=== PATIENT | male | born 1985 | race Caucasian/White ===

== ENCOUNTER → 2017-08-20 | Outpatient (CLI) | payer OTHER ==
[~2017-08-20] MED LIST: IOPAMIDOL 76% 75 ML INFUS BTL 75 ML ONE; MULT-1081 PO
--- NOTE | 2017-08-20 15:33 | RADIOLOGY IMAGING REPORT ---
FACILITY: [facility] - [place] PATIENT NAME: Yusef Palacios : 1985 MR: [id number] V: [id number] EXAM DATE: ORDERING PHYSICIAN: ERIKA BRICE TECHNOLOGIST: [place] [facility] [place] Yusef Palacios : 1985 Visit/Account:[id number] Date of Sevice: 08/20/2017 ABDOMEN/PELVIS W/WO CONTRAST HISTORY: Right-sided abdomen pain and painless jaundice TECHNIQUE: Axial images acquired through the abdomen/pelvis both with and without IV contrast.. Macy nal and sagittal reformatting also performed. Dose Lowering Technique One of the following dose optimization techniques was utilized in the performance of this exam: Autom ated exposure control; adjustment of the mA and/or kV according to the patient's size; or use of an i terative reconstruction technique. Specific details can be referenced in the facility's radiology C T exam operational policy. CONTRAST: 75 mL Isovue-370 COMPARISON: None. FINDINGS: Visualized lung bases: Negative. Hepatobiliary: Liver is enlarged measuring 21.3 cm in length. The gallbladder is very distended junior suring approximately 11.1 x 4.8 x 4.4 cm and contains several small layering gallstones. Common bile duct is mildly dilated at 8 mm. There is no intrahepatic biliary ductal dilatation. Spleen: Spleen is enlarged measuring 16.6 cm in AP dimension 9.3 cm in width and 12.5 cm in length. Adrenals: Negative. Pancreas: A discrete pancreatic mass is not appreciated Kidneys ureters and bladder: The left kidney appears prominent measuring 13.9 cm in length right kidn ey appears much smaller measuring 9.7 cm in length. No evidence of hydronephrosis. There is mild lo bular contour to the right kidney which may reflect scarring Genitalia: Negative. GI: Negative. Vessels/spaces/nodes: There is a left paraesophageal soft tissue nodule measuring 1.4 x 1 x 2.7 cm a long the distal third of the esophagus may represent a lymph node or varix. There are multiple gastr ic and splenic varices consistent with portal hypertension. There are several mildly prominent lymph nodes in the right lower quadrant. [employer] lymph nod e measures 1.3 x 0.9 cm. There is indistinctness of the fat planes in the portal caval region and adenopathy cannot be totally ruled out Bones/soft tissues: Negative. Additional findings: None pertinent. IMPRESSION: Hepatosplenomegaly with gastric and splenic varices consistent with portal hypertension. There is an additional ovoid soft tissue nodule in the left paraesophageal region as described above which may r epresent a lymph node or a varix The gallbladder is distended measuring approximately 11.1 x 4.8 x 4.47 m and contains several small l ayering gallstones. The common duct is mildly dilated at 8 mm. A discrete pancreatic mass is not se en. Given the clinical history and MRCP is recommended. Several mildly prominent right lower quadrant lymph nodes are present. There is indistinctness of the fat planes in the portal caval region and adenopathy cannot be totally ruled out. This could also be evaluated with MRCP Report Dictated By: Erica Lobo MD at 08/20/2017 3:14 PM Report E-Signed By: Erica Lobo MD at 08/20/2017 3:28 PM WSN:[email or web address]
== END ==
LOC: CT 13:51
PROVIDERS: ATTEND Family Medicine
DX: K80.20 Calculus of gallbladder without cholecystitis without obstruction (principal); R16.2 Hepatomegaly with splenomegaly, not elsewhere classified; K76.6 Portal hypertension; R59.0 Localized enlarged lymph nodes
CPT/HCPCS: 74178; Q9967

== ENCOUNTER → 2017-08-20 | Outpatient (REF) | payer OTHER ==
[~2017-08-20] MED LIST changes: -IOPAMIDOL 76% 75 ML INFUS BTL 75 ML ONE
[2017-08-20 11:37] LABS: INR 1.3
== END ==
LOC: ZZSENDIN 11:16
PROVIDERS: ATTEND Family Medicine
DX: R94.5 Abnormal results of liver function studies (principal)
CPT/HCPCS: 85610

== ENCOUNTER → 2017-08-27 | Outpatient (CLI) | payer OTHER ==
[~2017-08-27] MED LIST changes: +GADOBENATE 529MG/1ML 15ML VIAL IVP ONE; +NS 0.9% 20 ML SDV 40 ML ONE
--- NOTE | 2017-08-27 10:43 | RADIOLOGY IMAGING REPORT ---
[place] [facility] [place] NAME: Yusef Palacios : 1985 MR: [id number] V: [id number] EXAM DATE: ORDERING PHYSICIAN: ERIKA BRICE TECHNOLOGIST: Location: [facility] [place] Patient: Yusef Palacios : 1985 Visit/Account:[id number] Date of Sevice: 08/27/2017 ABDOMEN W W/O CONTRAST HISTORY: Right-sided abdomen pain, history of painless jaundice ADDITIONAL HISTORY: None. TECHNIQUE: TECHNIQUE: Multiplanar multisequence magnetic resonance imaging of the abdomen without a nd with intravenous contrast. CONTRAST: 15 mL MultiHance mL of MultiHance COMPARISON: CT abdomen and pelvis August 20, 2017 FINDINGS: Visualized lung bases: Grossly unremarkable. Liver: Hepatomegaly is present with the liver measuring 21.6 cm in length. Gallbladder: Multiple small layering gallstones are present. The gallbladder is distended measuring 12.3 cm in length. Bile ducts: There is possible subtle narrowing in the common hepatic duct and possible narrowing of t he left hepatic duct. These are subtle changes although possibility of primary biliary cholangitis w ould be included in the differential diagnosis. Spleen: Splenomegaly Adrenal glands: Negative. Pancreas: Negative. Kidneys: Hypertrophy of the left kidney relative to the right again seen Vessels/spaces/nodes: Gastric and splenic varices again seen small soft tissue nodule adjacent to the distal esophagus may represent a small lymph node versus additional varix. Visualized GI: Grossly unremarkable. Bones/soft tissues: Unremarkable. IMPRESSION: There is hepatosplenomegaly and evidence of portal hypertension. The gallbladder is distended in add ition to several small gallstones which were present on the prior CT. Cystic duct obstruction not to tally excluded. There suggestion of possible mild narrowing of the common hepatic duct and possible narrowing of th e left hepatic duct. Although these changes are subtle given the additional findings the possibility of primary biliary cholangitis would be included in the differential diagnosis. An obstructing lesi on is not identified within the pancreas. Consultation with a gastrointestinal specialist recommende d for further evaluation. Report Dictated By: Erica Lobo MD at 08/27/2017 9:27 AM Report E-Signed By: Erica Lobo MD at 08/27/2017 10:40 AM WSN:[email or web address]
== END ==
LOC: MRI 08-23 00:13
PROVIDERS: ATTEND Family Medicine
DX: K76.6 Portal hypertension (principal); R16.0 Hepatomegaly, not elsewhere classified; R16.1 Splenomegaly, not elsewhere classified; K80.50 Calculus of bile duct without cholangitis or cholecystitis without obstruction
CPT/HCPCS: 74183; A9577; J7050

== ENCOUNTER → 2017-09-03 | Outpatient (CLI) | payer OTHER ==
[~2017-09-03] MED LIST changes: -GADOBENATE 529MG/1ML 15ML VIAL IVP ONE; -NS 0.9% 20 ML SDV 40 ML ONE
== END ==
LOC: LAB 15:04
PROVIDERS: ATTEND Internal Medicine Gastroenterology
DX: R10.0 Acute abdomen (principal); R17 Unspecified jaundice; R10.9 Unspecified abdominal pain
CPT/HCPCS: 36415; 82040; 82310; 82374; 82435; 82565; 82947; 84100; 84132; 84295; 84520

== ENCOUNTER → 2017-09-06 | Outpatient (CLI) | payer OTHER | LOC: LAB 13:06 | PROVIDERS: ATTEND Internal Medicine Gastroenterology | DX: K75.4 Autoimmune hepatitis (principal) | CPT/HCPCS: 36415; 82040; 82247; 82248; 84075; 84155; 84450; 84460; 85027; 85651 ==

== ENCOUNTER → 2017-09-12 | Outpatient (CLI) | payer OTHER ==
[~2017-09-12] MED LIST changes: +GADOBENATE 529MG/1ML 15ML VIAL IVP ONE; +NS 0.9% 20 ML SDV 60 ML ONE
--- NOTE | 2017-09-12 09:32 | RADIOLOGY IMAGING REPORT ---
FACILITY: [facility] PATIENT NAME: Yusef Palacios : 1985 MR: [id number] V: [id number] EXAM DATE: ORDERING PHYSICIAN: MARY BENNETT TECHNOLOGIST: Location: [facility] Patient: Yusef Palacios : 1985 Visit/Account:[id number] Date of Sevice: 09/12/2017 ABDOMEN W W/O CONTRAST HISTORY: 32-year-old with right upper quadrant pain, dilated bile duct, autoimmune hepatitis TECHNIQUE: Multiplanar multisequence magnetic resonance imaging of the abdomen with and without intr avenous contrast. CONTRAST: 15 cc of MultiHance COMPARISON: MRI 08/27/2017 FINDINGS: Liver: Liver measures 19.1 cm in craniocaudal length. The liver liver surface is smooth but the signa l intensity is somewhat heterogeneous in this patient with known early cirrhosis. Subtle increased T2 signal on the diffusion-weighted imaging suggests fibrosis in the anterior segment right lobe. No co ncerning liver lesions to suggest occult hepatoma. Hepatic veins and portal vein are patent. The main portal vein measures 15 mm which is slightly promi nent. Gallbladder and bile ducts: Several tiny gallstones are noted in gallbladder. No evidence for choledo cholithiasis. Common bile duct measures 3 mm. Reidentified is a focal short segment stricture of the common hepatic duct just below the rosanna hepatis and potentially a small stricture of the left hepati c duct. I cannot exclude underlying primary sclerosing cholangitis. Spleen: Measures 12.3 cm in length. Adrenal glands: Negative. Pancreas: Negative. Kidneys: Right kidney is slightly atrophic compared to the left which is unchanged. Vessels: Small varices in the upper abdomen are noted. Bowel/peritoneum/mesentery: Negative Lymph nodes: Negative Bones/soft tissues: Negative Visualized lung bases: Negative Visualized pelvis: Negative Other findings: None significant IMPRESSION: 1. Slightly heterogeneous signal intensity of the liver in this patient with known cirrhosis. Liver s urface remains smooth. Increased T2 signal anterior segment right lobe may imply some degree of fibro sis. No focal liver lesions are seen to suggest occult hepatoma. 2. Tiny gallstones are noted in the gallbladder but no evidence for choledocholithiasis. Common bile duct measures 3 mm. 3. Reidentified is a focal short segment stricture of the common hepatic duct just below the rosanna he patis and potentially a small stricture of the left common hepatic duct. I cannot exclude PSC. Report Dictated By: Alexey Grullon MD at 09/12/2017 9:03 AM Report E-Signed By: Alexey Grullon MD at 09/12/2017 9:27 AM WSN:[id number]
== END ==
LOC: MRI 00:28
PROVIDERS: ATTEND Internal Medicine Gastroenterology
DX: K80.20 Calculus of gallbladder without cholecystitis without obstruction (principal); K76.0 Fatty (change of) liver, not elsewhere classified
CPT/HCPCS: 74183; A9577; J7050

== ENCOUNTER → 2017-09-20 | Outpatient (CLI) | payer OTHER ==
[~2017-09-20] MED LIST changes: -GADOBENATE 529MG/1ML 15ML VIAL IVP ONE; -NS 0.9% 20 ML SDV 60 ML ONE
== END ==
LOC: LAB 07:41
PROVIDERS: ATTEND Internal Medicine Gastroenterology
DX: K75.4 Autoimmune hepatitis (principal)
CPT/HCPCS: 36415; 82040; 82247; 82248; 84075; 84155; 84450; 84460

== ENCOUNTER → 2017-10-02 | Outpatient (CLI) | payer OTHER | LOC: LAB 07:11 | PROVIDERS: ATTEND Internal Medicine Gastroenterology | DX: K75.4 Autoimmune hepatitis (principal) | CPT/HCPCS: 36415; 82040; 82247; 82248; 84075; 84155; 84450; 84460 ==

== ENCOUNTER → 2017-10-21 | Outpatient (CLI) | payer OTHER | LOC: LAB 16:26 | PROVIDERS: ATTEND Internal Medicine Gastroenterology | DX: K75.4 Autoimmune hepatitis (principal); R79.89 Other specified abnormal findings of blood chemistry | CPT/HCPCS: 36415; 82390; 83516; 84165; 86147; 86334 ==

== ENCOUNTER → 2017-10-29 | Outpatient (CLI) | payer OTHER | LOC: LAB 07:42 | PROVIDERS: ATTEND Internal Medicine Gastroenterology | DX: K75.4 Autoimmune hepatitis (principal) | CPT/HCPCS: 36415; 82040; 82247; 82248; 84075; 84155; 84450; 84460 ==

== ENCOUNTER → 2017-11-18 | Outpatient (CLI) | payer OTHER | LOC: LAB 13:04 | PROVIDERS: ATTEND Internal Medicine Gastroenterology | DX: K75.4 Autoimmune hepatitis (principal) | CPT/HCPCS: 36415; 82040; 82247; 82248; 84075; 84155; 84450; 84460 ==

== ENCOUNTER → 2017-12-27 | Outpatient (CLI) | payer OTHER ==
--- NOTE | 2017-12-27 17:02 | RADIOLOGY IMAGING REPORT ---
FACILITY: [facility] [place] NAME: Yusef Palacios : 1985 MR: [id number] V: [id number] EXAM DATE: ORDERING PHYSICIAN: ERIKA BRICE TECHNOLOGIST: Location: [facility] Patient: Yusef Palacios : 1985 Visit/Account:[id number] Date of Sevice: 12/27/2017 Abdominal ultrasound Indication: Abdominal pain, concern for Budd-Chiari Comparison: CT 12/03/2017 Findings: Liver is normal in size, contour, and echotexture and measures 16.4 cm in length. There is normal hep atopedal portal venous flow. The hepatic veins are widely patent The spleen is normal in size, contour, and echotexture and measures 12.9 cm in length. Gallbladder wall thickness is 3.1 mm with multiple shadowing stones within the gallbladder lumen. Neg ative sonographic Lantigua's sign reported by the technologist. Common duct measures 3.3 mm in maximum diameter with no evidence of shadowing stone. Pancreas is obscured by bowel gas Abdominal aorta and IVC are patent and unremarkable. The bilateral kidneys are normal in size, contour, and echotexture with the right kidney measuring 9 .1 cm and the left kidney measuring 13.1 cm. IMPRESSION: 1. No evidence of Budd-Chiari as clinically questioned. The hepatic veins are widely patent normal d irection of flow. 2. Stable cholelithiasis without evidence of acute or chronic cholecystitis Report Dictated By: Jimbo Rubio at 12/27/2017 4:56 PM Report E-Signed By: Jimbo Rubio at 12/27/2017 4:58 PM WSN:[email or web address]
--- NOTE | 2017-12-31 11:32 | RADIOLOGY IMAGING REPORT ---
FACILITY: [facility] PATIENT NAME: Yusef Palacios : 1985 MR: [id number] V: [id number] EXAM DATE: [id number] ORDERING PHYSICIAN: ERIKA BRICE TECHNOLOGIST: Location: [facility] [place] Patient: Yusef Palacios : 1985 Visit/Account:[id number] Date of Sevice: 12/27/2017 Abdominal ultrasound Indication: Abdominal pain, concern for Budd-Chiari Comparison: CT 12/03/2017 Findings: Liver is normal in size, contour, and echotexture and measures 16.4 cm in length. There is normal hep atopedal portal venous flow. The hepatic veins are widely patent The spleen is normal in size, contour, and echotexture and measures 12.9 cm in length. Gallbladder wall thickness is 3.1 mm with multiple shadowing stones within the gallbladder lumen. Neg ative sonographic Lantigua's sign reported by the technologist. Common duct measures 3.3 mm in maximum diameter with no evidence of shadowing stone. Pancreas is obscured by bowel gas Abdominal aorta and IVC are patent and unremarkable. The bilateral kidneys are normal in size, contour, and echotexture with the right kidney measuring 9 .1 cm and the left kidney measuring 13.1 cm. IMPRESSION: 1. No evidence of Budd-Chiari as clinically questioned. The hepatic veins are widely patent normal d irection of flow. 2. Stable cholelithiasis without evidence of acute or chronic cholecystitis Report Dictated By: Jimbo Rubio at 12/27/2017 4:56 PM Report E-Signed By: Jimbo Rubio at 12/27/2017 4:58 PM WSN:[email or web address]
== END ==
LOC: US 14:44
PROVIDERS: ATTEND Family Medicine
DX: K80.20 Calculus of gallbladder without cholecystitis without obstruction (principal)
CPT/HCPCS: 76700; 76705

== ENCOUNTER → 2018-02-12 | Outpatient (CLI) | payer OTHER ==
[~2018-02-12] MED LIST changes: +HYDR30CR10 TP
[2018-02-12 09:17] LABS: PLATELET COUNT, AUTOMATED 163 K/uL (150-450)
[2018-02-12 09:24] LABS: INR 1.09
== END ==
LOC: LAB 08:58
PROVIDERS: ATTEND Internal Medicine Gastroenterology
DX: K75.4 Autoimmune hepatitis (principal)
CPT/HCPCS: 36415; 82040; 82247; 82310; 82374; 82435; 82565; 82947; 84075; 84132; 84155; 84295; 84450; 84460; 84520; 85007; 85027; 85610

== ENCOUNTER → 2018-05-15 | Outpatient (CLI) | payer OTHER ==
[2018-05-15 08:12] LABS: PLATELET COUNT, AUTOMATED 154 K/uL (150-450)
[2018-05-15 08:13] LABS: INR 1.09
== END ==
LOC: LAB 07:48
PROVIDERS: ATTEND Internal Medicine Gastroenterology
DX: K75.4 Autoimmune hepatitis (principal)
CPT/HCPCS: 36415; 82040; 82247; 82310; 82374; 82435; 82565; 82947; 84075; 84132; 84155; 84295; 84450; 84460; 84520; 85007; 85027; 85610

== ENCOUNTER → 2018-07-02 | Outpatient (CLI) | payer OTHER ==
--- NOTE | 2018-07-02 09:13 | RADIOLOGY IMAGING REPORT ---
FACILITY: [facility] [place] PATIENT NAME: Yusef Palacios : 1985 MR: [id number] V: [id number] EXAM DATE: ORDERING PHYSICIAN: DAVID RAZO TECHNOLOGIST: Location: [facility] [place] Patient: Yusef Palacios : 1985 Visit/Account:[id number] Date of Sevice: 07/02/2018 ABDOMEN COMPLETE HISTORY: Autoimmune hepatitis. Right upper quadrant pain COMPARISON: None. FINDINGS: Gallbladder: There are mobile echogenic foci compatible small gallstones. No pericholecystic fluid. N o wall edema. Liver: 13 cm. No focal liver lesions. Common duct: Normal, 2.1 mm diameter. Pancreas: Normal where visualized. Spleen: 13 cm. No focal splenic lesions Right kidney: 8.3 x 4.9 x 4.2 cm. No focal lesions. No hydronephrosis Left Kidney: 12.8 x 6.7 x 7.3 cm. No hydronephrosis. No cortical mass lesions Upper abdominal aorta and IVC: Patent. Ascites: None visualized. IMPRESSION: 1. Cholelithiasis without evidence of cholecystitis. 2. Borderline splenomegaly. Report Dictated By: Guanaco Pierre MD at 07/02/2018 9:04 AM Report E-Signed By: Guanaco Pierre MD at 07/02/2018 9:09 AM WSN:[id number]
== END ==
LOC: US 00:25
PROVIDERS: ATTEND Internal Medicine Gastroenterology
DX: K80.20 Calculus of gallbladder without cholecystitis without obstruction (principal)
CPT/HCPCS: 76700

== ENCOUNTER → 2018-07-18 | Outpatient (REF) | payer OTHER | LOC: ZZSENDIN 09:04 | PROVIDERS: ATTEND Family Medicine | DX: K75.4 Autoimmune hepatitis (principal) | CPT/HCPCS: 85651 ==

== ENCOUNTER → 2018-08-01 | Outpatient (CLI) | payer OTHER ==
[~2018-08-01] MED LIST changes: +IOPAMIDOL 76% 150 ML INFUS BTL 150 ML ONE
--- NOTE | 2018-08-01 08:46 | RADIOLOGY IMAGING REPORT ---
FACILITY: [facility] PATIENT NAME: Yusef Palacios : 1985 MR: [id number] V: [id number] EXAM DATE: ORDERING PHYSICIAN: DAVID RAZO TECHNOLOGIST: Location: [facility] Patient: Yusef Palacios : 1985 Visit/Account:[id number] Date of Sevice: 08/01/2018 CT ABD W/ & W/O CON COMPARISON: August 20, 2017 ADDITIONAL PERTINENT HISTORY: Autoimmune hepatitis Technique: Multiple axial images were obtained from the lung bases through the iliac crest before and after the IV administration of IV contrast. One of the following dose optimization techniques was u tilized in the performance of this exam: Automated exposure control; adjustment of the mA and/or kV a ccording to the patient's size; or use of an iterative reconstruction technique. Specific details c an be referenced in the facility's radiology CT exam operational policy. Contrast: 75 ml of Isovue-370 FINDINGS: Lung bases: Negative. Free air and free fluid: None. Liver: Continued mild hepatomegaly. Otherwise negative Spleen: The spleen remains at the upper limits of normal for size. This is stable in appearance from previous exam. Kidneys and proximal ureters: Negative. Adrenal glands: Negative. Pancreas: Negative. Gallbladder: The gallbladder remains moderately distended. Continued findings of calcified gallstone s within the gallbladder lumen. Visualized bowel and mesentery: Negative.. Lymph node assessment: Negative. Retroperitoneum: Negative. Abdominal vasculature: Continued dilated venous structures in the upper abdomen compatible with under lying varices these are stable in appearance from previous exam. Surrounding soft tissues: Negative. Osseous structures: Minimal spondylitic change involving the lower thoracic spine IMPRESSION: 1. Continued mild hepatomegaly with continued varices in the upper abdomen. 2. Continued mild distention of the gallbladder with cholelithiasis. 3. No new findings from previous exam. Report Dictated By: Jadon Darnell MD at 08/01/2018 8:35 AM Report E-Signed By: Jadon Darnell MD at 08/01/2018 8:41 AM WSN:[email or web address]
== END ==
LOC: CT 02:33
PROVIDERS: ATTEND Internal Medicine Gastroenterology
DX: K75.4 Autoimmune hepatitis (principal)
CPT/HCPCS: 74170; Q9967

== ENCOUNTER → 2018-09-03 | Outpatient (CLI) | payer OTHER ==
[~2018-09-03] MED LIST changes: -IOPAMIDOL 76% 150 ML INFUS BTL 150 ML ONE
[2018-09-03 16:17] LABS: INR 1.02
[2018-09-03 16:19] LABS: PLATELET COUNT, AUTOMATED 148 K/uL (150-450)
== END ==
LOC: LAB 15:35
PROVIDERS: ATTEND Internal Medicine Gastroenterology
DX: K75.4 Autoimmune hepatitis (principal)
CPT/HCPCS: 36415; 82040; 82247; 82310; 82374; 82435; 82565; 82947; 84075; 84132; 84155; 84295; 84450; 84460; 84520; 85007; 85027; 85610